=== PATIENT | male | born 1975 ===

== ENCOUNTER → 2022-06-07 | Outpatient (REF) | payer BC | LOC: M LAB REF 16:03 | PROVIDERS: ATTEND Physician Assistant | DX: S81.802A Unspecified open wound, left lower leg, initial encounter (principal) ==

== ENCOUNTER → 2022-06-29 | Outpatient (REF) | payer BC | LOC: M LAB REF 13:24 | PROVIDERS: ATTEND Orthopaedic Surgery | DX: Z47.89 Encounter for other orthopedic aftercare (principal) ==